=== PATIENT | male | born 1990 | race Caucasian/White ===

== ENCOUNTER → 2022-12-15 | Outpatient (CLI) | payer OTHER, SELFPAY ==
[2022-12-15 15:55] LABS: Absolute Lymphocyte Count 0.96 X10^3/uL (0.83-4.51); Absolute Neutrophil Count 3.7 X10^3/uL (2.0-7.7); Basophil# 0.02 X10^3/uL; Basophil% 0.4 % (0-1); Eosinophil# 0.02 X10^3/uL; Eosinophils% 0.4 % (0-5); Hematocrit 36.4 % (40-54); Lymphocyte # 0.96 X10^3/ul (0.83-4.51); Lymphocyte % 17.9 % (19-41); Mean Corpuscular Hgb 29.9 pg (27.0-32.0); Mean Corpuscular Volume 90.8 fL (80-94); Mean Platelet Vol. 8.3 fl (6.2-12.0); Monocyte# 0.62 X10^3/uL; Monocyte% 11.6 % (0-10); NRBC Flagged by Analyzer 0 % (0-5); Neutrophil # 3.73 X10^3/uL (2.7-7.7); Neutrophil % 69.5 % (47-70); Platelet Count 526 K/mm3 (150-450); RBC Distribution Width CV 15.1 % (11.6-14.6); RBC Distribution Width SD 50.8 fl (35.1-43.9); Red Blood Count 4.01 M/mm3 (4.6-6.2); White Blood Count 5.4 K/mm3 (4.4-11.0)
[2022-12-15 16:38] LABS: Erythrocyte Sedimentation Rate < 1 mm/hr (0-20)
[2022-12-15 16:58] LABS: ALB/GLOB Ratio 1.1 RATIO (0.9-2.4); AST(SGOT) 31 U/L (15-37); Alanine Aminotransfer ALT/SGPT 27 U/L (16-61); Albumin, Serum 4.1 g/dL (3.2-5.0); Alkaline Phosphatase 89 U/L (45-117); Anion Gap 7 (5-15); BUN 23 mg/dL (7-18); BUN/Creat Ratio 23.2 RATIO (10-20); CRP < 2.90 mg/L (0.0-3.0); Calcium,Total 9.6 mg/dL (8.5-10.1); Chloride 106 mmol/L (98-107); Creatinine, Serum 0.99 mg/dL (0.70-1.30); EST Glomerular Filtration Rate 94 mL/min (>60); Est Glom Filt Rate - Afr Amer 114 mL/min (>60); Globulin 3.6 g/dL (2.2-4.2); Glucose 112 mg/dL (74-106); LDH 210 U/L (87-241); Potassium 3.5 mmol/L (3.5-5.1); Protein, Total 7.7 g/dL (6.4-8.2); Sodium Level 140 mmol/L (136-145)
[2022-12-19 15:08] LABS: Anti-Centromere B Ab <0.2 AI (0.0-0.9); Anti-Chromatin <0.2 AI (0.0-0.9); Anti-Jo <0.2 AI (0.0-0.9); Anti-Mitochondrial AB <20.0 Units (0.0-20.0); Anti-Scleroderma-70 AB <0.2 AI (0.0-0.9); Anti-dsDNA Ab 1 IU/mL (0-9); Endomysial Antibody IgA Negative (Negative); Immunoglobulin A 310 mg/dL (90-386); RNP Ab 0.2 AI (0.0-0.9); SJOGREN'S Anti-SS-A test < 0.2 AI (0.0-0.9); SJOGREN'S Anti-SS-B test < 0.2 AI (0.0-0.9); Smith Ab <0.2 AI (0.0-0.9); t-Transglutaminase IgA <2 U/mL (0-3)
[2022-12-19 16:08] LABS: Albumin 4.4 g/dL (2.9-4.4); Alpha-1-Globulins 0.2 g/dL (0.0-0.4); Alpha-2-Globulins 0.6 g/dL (0.4-1.0); Anti-Smooth Muscle ABS 6 Units (0-19); Cytoplasmic Ab (C-ANCA) <1:20 titer (Neg:<1:20); Gamma Globulin 1.1 g/dL (0.4-1.8); Immunoglobulin A 310 mg/dL (90-386); Immunoglobulin E 12 IU/mL (6-495); Immunoglobulin G 1090 mg/dL (603-1613); Immunoglobulin M 77 mg/dL (20-172); PROEL- TOTAL PROTEIN 7.5 g/dL (6.0-8.5); Perinuclear Ab (P-ANCA) <1:20 titer (Neg:<1:20)
== END | disposition home or self-care (01) ==
PROVIDERS: PCP Family Medicine; Referring Provider Internal Medicine Gastroenterology; Visit Provider Internal Medicine Gastroenterology
DX: K51.90 Ulcerative colitis, unspecified, without complications (principal)
CPT/HCPCS: 36415; 80053; 82784; 82785; 83516; 83615; 84165; 85025; 85652; 86140; 86225; 86235; 86255; 86256; 86334

== ENCOUNTER → 2022-12-23 | Outpatient (CLI) | payer OTHER, SELFPAY ==
[2022-12-29 17:07] LABS: Pancreatic Elastase, Fecal 70 (>200)
[2023-01-04 00:06] LABS: Calprotectin, Stool 73 ug/g (0-120); Fats, Neutral Normal (.); Fats, Total Normal (.)
== END | disposition home or self-care (01) ==
LOC: LABSPEC 07:01
PROVIDERS: PCP Family Medicine; Visit Provider Internal Medicine Gastroenterology
DX: K58.9 Irritable bowel syndrome, unspecified (principal); K51.90 Ulcerative colitis, unspecified, without complications
CPT/HCPCS: 82274; 82653; 82705; 83630; 83993; 87177; 87209; 87329; 87493; 87506

== ENCOUNTER 2023-03-16 08:04 | Day surgery (SDC) | payer OTHER, SELFPAY ==
[2023-03-16] VITALS (7 sets, daily range): BP systolic 98–132; BP diastolic 51–84; PULSE 45–52; RESP 16; TEMP 36.2–36.7; O2SAT 100; BMI 22.4
--- NOTE | 2023-03-16 | GASB_PTH ---
PATIENT: KIRA ARMAS LOC: [facility] U#:[id number] AGE/SX: 32/M ROOM: RE03/16/[address]: Dr. Milad Johnson DO : 1990 BED: DIS: 03/16/2023 SPEC #: [id number] RECD: 03/16/23 12:19 STATUS: KAYA DONNELL #: [id number] OCTAVIO: 03/16/23 00:[address]: Milad Johnson DEPT: SURGICAL PATHOLOGY RECD BY: Cuba Alvarez ENTERED: 03/16/23 12:20 SP TYPE: Gastric Bx OTHR DR: Dr. Jarrod Hernandez MD Tissues: A - Duodenum, NOS B - Duodenum, NOS C - Gastric mucous membrane D - Esophageal mucous membrane E - COLON BIOPSY F - Ileum, NOS G - Ascending colon H - Transverse colon I - Descending colon J - Sigmoid colon biopsy K - Sigmoid colon biopsy L - Rectum, NOS Procedures: Special Stain Group II Surgery Specimen Level IV Alcian Blue/PAS (control) HEADER OPERATION: Colonoscopy with biopsies and polypectomy and marking, EGD PRE-OP DIAGNOSIS: Ulcerative colitis TISSUE SUBMITTED: A - Duodenal ulcer biopsy, B - Random duodenum biopsy, C - Gastric body biopsy, D - Distal esophagus biopsy, E - Appendiceal orifice biopsy, F - Terminal ileum biopsy, G??Ascending colon biopsy, H - Transverse colon biopsy, I - Descending colon biopsy, J - Sigmoid colon biopsy, K - Sigmoid polyp, L - Rectal biopsy MICROSCOPIC DIAGNOSIS A. Duodenal ulcer, biopsy: No pathologic change. B. Duodenum, random biopsy: Focal gastric metaplasia. C. Gastric body, biopsy: Minimal chronic inflammation. See comment. D. Distal esophagus, biopsy: Gastroesophageal junctional mucosa with mild chronic inflammation. 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 No evidence of dysplasia. See comment. E. Appendiceal orifice, biopsy: Focal acute colitis. F. Terminal ileum, biopsy: No pathologic change. G. Descending colon, biopsy: No pathologic change. H. Transverse colon, biopsy: No pathologic change. I. Descending colon, biopsy: Mild architectural change. No evidence of active colitis. J. Sigmoid colon, biopsy: Mild architectural change. No evidence of active colitis. K. Sigmoid colon polyp, biopsy: Colonic polyp with adenomatous change, ulceration and associated granulation. L. Rectum, biopsy: Mild architectural change. No evidence of active colitis. AM:wilson 03/17/2023 COMMENT C. The results of immunohistochemistry for Helicobacter pylori will be reported separately ([id number]). D. Alcian blue/PAS stain with matched control supports the above diagnosis. Immunohistochemistry ([id number]) for P53 and Ki-67 will be performed and results will be reported separately. MICROSCOPIC DESCRIPTION Slides are reviewed. GROSS DESCRIPTION A - Received in fixative is one container labeled with the patient's name and designated duodenal ulcer biopsy. The specimen consists of multiple irregular fragments of light chandler soft tissue that in aggregate measure 0.5 x 0.2 x 0.1 cm. The specimen is totally submitted in one cassette. B - Received in fixative is one container labeled with the patient's name and designated random duodenum biopsy. The specimen consists of multiple irregular fragments of light chandler soft tissue that in aggregate measure 0.7 x 0.5 x 0.1 cm. The specimen is totally submitted in one cassette. C - Received in fixative is one container labeled with the patient's name and designated gastric body. The specimen consists of multiple irregular fragments of light chandler soft tissue that in aggregate measure 0.8 x 0.6 x 0.1 cm. The specimen is totally submitted in one cassette. D - Received in fixative is one container labeled with the patient's name and designated distal esophagus biopsy. The specimen consists of multiple irregular fragments of light chandler soft tissue that in aggregate measure 0.8 x 0.7 x 0.1 cm. The specimen is totally submitted in one cassette. E - Received in fixative is one container labeled with the patient's name and designated appendiceal orifice biopsy. The specimen consists of one irregular fragment of light chandler soft tissue that measures 0.3 x 0.2 x 0.1 cm. The specimen is totally submitted in one cassette. F - Received in fixative is one container labeled with the patient's name and designated terminal ileum biopsy. The specimen consists of two irregular fragments of light chandler soft tissue that in aggregate measure 0.5 x 0.3 x 0.1 cm. The specimen is totally submitted in one cassette. G - Received in fixative is one container labeled with the patient's name and designated ascending colon. The specimen consists of multiple irregular fragments of light chandler soft tissue that in aggregate measure 1.0 x 0.6 x 0.1 cm. The specimen is totally submitted in one cassette. H - Received in fixative is one container labeled with the patient's name and designated transverse colon biopsy. The specimen consists of multiple irregular fragments of light chandler soft tissue that in aggregate measure 1.5 x 0.5 x 0.1 cm. The specimen is totally submitted in one cassette. I - Received in fixative is one container labeled with the patient's name and designated descending colon biopsy. The specimen consists of multiple irregular fragments of light chandler soft tissue that in aggregate measure 2.0 x 0.5 x 0.1 cm. The specimen is totally submitted in one cassette. J - Received in fixative is one container labeled with the patient's name and designated sigmoid colon biopsy. The specimen consists of multiple irregular fragments of light chandler soft tissue that in aggregate measure 1.5 x 0.6 x 0.1 cm. The specimen is totally submitted in one cassette. K - Received in fixative is one container labeled with the patient's name and designated sigmoid polyp. The specimen consists of one irregular fragment of light chandler soft tissue that measures 1.0 x 0.5 x 0.3 cm. The specimen is totally submitted in one cassette. L - Received in fixative is one container labeled with the patient's name and designated rectal biopsy. The specimen consists of multiple irregular fragments of light chandler soft tissue that in aggregate measure 0.8 x 0.8 x 0.1 cm. The specimen is totally submitted in one cassette. / AM:wilson 03/16/2023 TC:2 CPT: 86112 x12, 99316
--- NOTE | 2023-03-16 08:10 | PCM.HP.BLA ---
History and Physical Date of Admission: 03/16/23 KIRA ARMAS, is a 32 M who presents to the office today for GI [facility] established. Discharged with Xeljanz which was denied and started on Rinvoq with resolution of loose stools and rectal bleeding. Attempted budesonide and humira, both failed to achieve remission/improve symptoms; started on Remicade early 2019 which had positive effects but was lost to follow up and he stopped therapy. LV ? Colonoscopy 06.15.20 left colon and rectal biopsy inactive chronic colitis. [facility] ED 05.20.22 with abdominal pain and hematochezia for two weeks. Diagnosed as acute UC flare and discharged with oral steroids. ? CT 05.20.22 OSH colitis involving colon, most notable from splenic flexure to rectum, likely IBD. Hospitalization [facility] 05.27.22-05.31.22 with acute flare of UC as a direct admit from Dr. Gooden with abdominal pain. Discharged with Xeljanz. PCP OV 09.14.22 with previously diagnosed UC currently managed with Rinvoq. No active symptoms noted. *[facility] established 12.15.22 UC diagnosed approximately 10 years prior. Continues with Rinvoq. Symptoms include loose stools, intermittent fevers, intermittent abdominal pain. Reports last colonoscopy which he reports polypectomy but no active UC seen and was then seen in [facility] for flare management. Assessment and Plan Assessment and Plan (1) Ulcerative colitis: Status: Chronic Plan: Patient has a history of ulcerative colitis . We will stage him and grade the severity of his disease. After that time, we will be able to determine the natural history of his disease. We will check biochemical work up, stool test, imaging and colonoscopy. Orders: Orders Comprehensive Metabolic Profil Today K51.90 - Ulcerative colitis, unspecified, without complications CRP Today K51.90 - Ulcerative colitis, unspecified, without complications LDH Today K51.90 - Ulcerative colitis, unspecified, without complications CBC W/Diff, Automated Today K51.90 - Ulcerative colitis, unspecified, without complications Erythrocyte Sed Rate Today K51.90 - Ulcerative colitis, unspecified, without complications Anti-Mitochondrial AB Today K51.90 - Ulcerative colitis, unspecified, without complications LIZ Comprehensive Panel Today K51.90 - Ulcerative colitis, unspecified, without complications Calprotectin, Stool Today - Ulcerative colitis, unspecified, without complications Fecal Fat, Qualitative Today - Ulcerative colitis, unspecified, without complications OVA+PARA w/Giardia EIA [id number] Today - Ulcerative colitis, unspecified, without complications CDIFF (PCR) Today - Ulcerative colitis, unspecified, without complications ENTERIC PATHOGEN PANEL STOOL Today - Ulcerative colitis, unspecified, without complications, K58.9 - Irritable bowel syndrome without diarrhea Stool Occult Blood iFOB Today - Ulcerative colitis, unspecified, without complications Stool Lactoferrin/WBC Today - Ulcerative colitis, unspecified, without complications ANCA Today - Ulcerative colitis, unspecified, without complications Anti-Smooth Muscle ABS Today - Ulcerative colitis, unspecified, without complications Celiac Disease Profile Today - Ulcerative colitis, unspecified, without complications Immunoglobulins G/A/M/E Today - Ulcerative colitis, unspecified, without complications MARIANNA + Protein Elect, Serum Today - Ulcerative colitis, unspecified, without complications Pancreatic Elastase, Fecal Today - Ulcerative colitis, unspecified, without complications Miscellaneous Lab Procedure Today - Ulcerative colitis, unspecified, without complications I have examined the patient and the H&P has been reviewed. There are no clinical changes since date of exam.
[2023-03-16] MEDS: Lactated Ringers 1,000 ML 15 ML IV (09:09)
--- NOTE | 2023-03-16 09:15 | IMM_PTH ---
PATIENT: KIRA ARMAS LOC: [facility] U#:[id number] AGE/SX: 32/M ROOM: RE03/16/[address]: Dr. Milad Johnson DO : 1990 BED: DIS: 03/16/2023 SPEC #: [id number] RECD: 03/16/23 12:27 STATUS: KAYA REAvery #: [id number] OCTAVIO: 03/16/23 09:[address]: Milad Johnson DEPT: IMMUNOHISTOCHEMISTRY RECD BY: Kate Mattson ENTERED: 03/16/23 12:28 SP TYPE: IMMUNO OTHR DR: Dr. Jarrod Hernandez MD Tissues: B - Stomach, NOS D - Esophagus, NOS Procedures: H Pylori (initial) P53 (initial) KI-67 (add) MOC-31 (add) PHYSICIAN & INSTITUTION [place] [id number] SPECIMEN INFORMATION: Tissue Source: C - Gastric body, biopsy, D - Distal esophagus, biopsy Clinical Info: Ulcerative colitis Specimen Number: [id number] C & D CPT code: 04175 x2, 13353 x2 METHODOLOGY: Deparaffinized sections of prefer/formalin-fixed tissue or PAP/DQ stained slides are incubated with monoclonal/polyclonal antibodies/oligonucleotide probes. Localization is made via biotin free immunoperoxidase method. Appropriate controls are performed and reacted as expected. Results on target cell population are indicated in the following table: RESULTS: ANTIBODY / CLONE RESULT Block C H Pylori (polyclonal) negative Block D P53 (DO-7) negative, null pattern Ki-67 (30-9) positive, low MOC-31 (4561) positive These tests were developed and their performance characteristics determined by [facility]. They may not have been cleared or approved by the U.S. Food and Drug Administration. The FDA has determined that such clearance or approval is not necessary. The above immunohistochemical/dualISH markers are ordered and reviewed by the Pathologist. INTERPRETATION: C. Gastric body, biopsy: Negative for Helicobacter pylori organisms. D. Distal esophagus, biopsy: No evidence of dysplasia. AM:wilson 03/20/2023
--- NOTE | 2023-03-16 10:45 | OP.CCLET_ITS ---
03/16/2023 Jarrod Hernandez Re : Upper GI endoscopy procedure for Jose R Robertson Dear David This procedure was performed on February. My impressions and recommendations are as follows: Impressions : - LA Grade B reflux esophagitis with no bleeding. Biopsied. - Erythematous mucosa in the gastric body, antrum and stomach. Biopsied. - Non-bleeding duodenal ulcer with no stigmata of bleeding. Biopsied. - Erythematous duodenopathy. Biopsied. Recommendations : - Discharge patient to home. - Resume previous diet. - Continue present medications. - Await pathology results. - Repeat upper endoscopy for surveillance. My findings are described in the full procedure note, which is enclosed. If I can be of further assistance, please feel free to contact me at . Sincerely, Milad Johnson, 03/16/2023 10:45:23 AM This report has been signed electronically.
--- NOTE | 2023-03-16 10:45 | OP.EGD_ITS ---
Patient Name: Jose R Robertson Procedure Date: 03/16/2023 9:51 AM Date of : 1990 Age: 32 Procedure: Upper GI endoscopy Indications: Epigastric abdominal pain Providers: Milad Johnson DO Referring MD: Jarrod Hernandez Medicines: Monitored Anesthesia Care Patient Profile: This is a 32 year old male. Refer to note in patient chart for documentation of history and physical. Patient has symptoms of chronic epigastric abdominal pain and chronic heartburn. Complications: No immediate complications. Procedure: Pre-Anesthesia Assessment: - Prior to the procedure, a History and Physical was performed, and patient medications and allergies were reviewed. The risks and benefits of the procedure and the sedation options and risks were discussed with the patient. All questions were answered and informed consent was obtained. Patient identification and proposed procedure were verified by the physician in the pre-procedure area. Mental Status Examination: alert and oriented. Airway Examination: normal oropharyngeal airway and neck mobility. Respiratory Examination: clear to auscultation. CV Examination: normal. Prophylactic Antibiotics: The patient does not require prophylactic antibiotics. Prior Anticoagulants: The patient has taken no anticoagulant or antiplatelet agents. After reviewing the risks and benefits, the patient was deemed in satisfactory condition to undergo the procedure. The anesthesia plan was to use minimal sedation / analgesia (anxiolysis). Immediately prior to administration of medications, the patient was re-assessed for adequacy to receive sedatives. The heart rate, respiratory rate, oxygen saturations, blood pressure, adequacy of pulmonary ventilation, and response to care were monitored throughout the procedure. The physical status of the patient was re-assessed after the procedure. After obtaining informed consent, the endoscope was passed under direct vision. Throughout the procedure, the patient's blood pressure, pulse, and oxygen saturations were monitored continuously. The Colonoscope was introduced through the mouth, and advanced to the second part of duodenum. The upper GI endoscopy was accomplished without difficulty. The patient tolerated the procedure well. Scope In: 10:02:42 AM Scope Out: 10:11:10 AM Total Procedure Duration Time 0 hours 8 minutes 28 seconds Findings: LA Grade B (one or more mucosal breaks greater than 5 mm, not extending between the tops of two mucosal folds) esophagitis with no bleeding was found 35 to 37 cm from the incisors. Biopsies were taken with a cold forceps for histology. Verification of patient identification for the specimen was done. Estimated blood loss was minimal. Localized mildly erythematous mucosa without bleeding was found in the gastric body, in the gastric antrum and in the stomach. Biopsies were taken with a cold forceps for histology. Verification of patient identification for the specimen was done. Estimated blood loss was minimal. One non-bleeding superficial duodenal ulcer with no stigmata of bleeding was found in the first portion of the duodenum. The lesion was 5 mm in largest dimension. Biopsies were taken with a cold forceps for histology. Verification of patient identification for the specimen was done. Estimated blood loss was minimal. Patchy mildly erythematous mucosa without active bleeding and with no stigmata of bleeding was found in the duodenal bulb. Biopsies were taken with a cold forceps for histology. Verification of patient identification for the specimen was done. Estimated blood loss was minimal. Impression: - LA Grade B reflux esophagitis with no bleeding. Biopsied. - Erythematous mucosa in the gastric body, antrum and stomach. Biopsied. - Non-bleeding duodenal ulcer with no stigmata of bleeding. Biopsied. - Erythematous duodenopathy. Biopsied. Recommendation: - Discharge patient to home. - Resume previous diet. - Continue present medications. - Await pathology results. - Repeat upper endoscopy for surveillance. Procedure Code(s): --- Professional --- 41347, Esophagogastroduodenoscopy, flexible, transoral; with biopsy, single or multiple CPT copyright 2021 [employer]. All rights reserved. The codes documented in this report are preliminary and upon soaking room operator review may be revised to meet current compliance requirements. Milad Johnson DO 03/16/2023 10:45:23 AM This report has been signed electronically. Number of Addenda: 0 Note Initiated On: 03/16/2023 9:51 AM
--- NOTE | 2023-03-16 10:54 | OP.COLON_ITS ---
Patient Name: Jose R Robertson Procedure Date: 03/16/2023 10:11 AM Date of : 1990 Age: 32 Procedure: Colonoscopy Indications: Left-sided chronic ulcerative colitis Providers: Milad Johnson DO Referring MD: Jarrod Hernandez Medicines: Monitored Anesthesia Care Patient Profile: This is a 32 year old male. Refer to note in patient chart for documentation of history and physical. Patient has symptoms of chronic epigastric abdominal pain and chronic heartburn. Last Colonoscopy: date unknown. Unable to locate last colonoscopy report. Complications: No immediate complications. Procedure: Pre-Anesthesia Assessment: - Prior to the procedure, a History and Physical was performed, and patient medications and allergies were reviewed. The risks and benefits of the procedure and the sedation options and risks were discussed with the patient. All questions were answered and informed consent was obtained. Patient identification and proposed procedure were verified by the physician in the pre-procedure area. Mental Status Examination: alert and oriented. Airway Examination: normal oropharyngeal airway and neck mobility. Respiratory Examination: clear to auscultation. CV Examination: normal. Prophylactic Antibiotics: The patient does not require prophylactic antibiotics. Prior Anticoagulants: The patient has taken no anticoagulant or antiplatelet agents. After reviewing the risks and benefits, the patient was deemed in satisfactory condition to undergo the procedure. The anesthesia plan was to use minimal sedation / analgesia (anxiolysis). Immediately prior to administration of medications, the patient was re-assessed for adequacy to receive sedatives. The heart rate, respiratory rate, oxygen saturations, blood pressure, adequacy of pulmonary ventilation, and response to care were monitored throughout the procedure. The physical status of the patient was re-assessed after the procedure. After I obtained informed consent, the scope was passed under direct vision. Throughout the procedure, the patient's blood pressure, pulse, and oxygen saturations were monitored continuously. The Colonoscope was introduced through the anus and advanced to the terminal ileum. The colonoscopy was performed without difficulty. The patient tolerated the procedure well. The quality of the bowel preparation was good. The terminal ileum, ileocecal valve, appendiceal orifice, and rectum were photographed. Scope In: 10:13:26 AM Scope Withdrawal Time 0 hours 16 minutes 20 seconds Scope Out: 10:32:36 AM Total Procedure Duration Time 0 hours 19 minutes 10 seconds Findings: The perianal and digital rectal examinations were normal. A 9 mm polyp was found in the sigmoid colon. The polyp was sessile. The polyp was removed with a hot snare. Resection and retrieval were complete. Area was successfully injected with 2 mL Mamie ink for tattooing. Estimated blood loss was minimal. Inflammation was found in a continuous and circumferential pattern from the rectum to the splenic flexure. This was graded as Stephens Score 2 (moderate, with marked erythema, absent vascular pattern, friability, erosions). Biopsies were taken with a cold forceps for histology. Verification of patient identification for the specimen was done. Estimated blood loss was minimal. Patchy mild inflammation was found in the terminal ileum. Biopsies were taken with a cold forceps for histology. Verification of patient identification for the specimen was done. Estimated blood loss was minimal. Impression: - One 9 mm polyp in the sigmoid colon, removed with a hot snare. Resected and retrieved. Injected. - Moderately active (Stephens Score 2) ulcerative colitis. Biopsied. - Mild inflammation was found in the ileum secondary to ileitis. Biopsied. Recommendation: - Discharge patient to home. - Resume previous diet. - Continue present medications. - Await pathology results. - Repeat colonoscopy in 1 year for surveillance. Procedure Code(s): --- Professional --- 31433, Colonoscopy, flexible; with removal of tumor(s), polyp(s), or other lesion(s) by snare technique 86060, 59, Colonoscopy, flexible; with biopsy, single or multiple 32936, Colonoscopy, flexible; with directed submucosal injection(s), any substance CPT copyright 2021 [employer]. All rights reserved. The codes documented in this report are preliminary and upon court reporter review may be revised to meet current compliance requirements. Milad Johnson DO 03/16/2023 10:54:15 AM This report has been signed electronically. Number of Addenda: 0 Note Initiated On: 03/16/2023 10:11 AM
--- NOTE | 2023-03-16 10:55 | OP.CCLET_ITS ---
03/16/2023 Jarrod Hernandez Re : Colonoscopy procedure for Jose R Robertson Dear David This procedure was performed on February. My impressions and recommendations are as follows: Impressions : - One 9 mm polyp in the sigmoid colon, removed with a hot snare. Resected and retrieved. Injected. - Moderately active (Stephens Score 2) ulcerative colitis. Biopsied. - Mild inflammation was found in the ileum secondary to ileitis. Biopsied. Recommendations : - Discharge patient to home. - Resume previous diet. - Continue present medications. - Await pathology results. - Repeat colonoscopy in 1 year for surveillance. My findings are described in the full procedure note, which is enclosed. If I can be of further assistance, please feel free to contact me at . Sincerely, Milad Johnson, 03/16/2023 10:54:15 AM This report has been signed electronically.
== END 2023-03-16 11:28 | disposition home or self-care (01) ==
LOC: EN 08:05 → AC 08:07
PROVIDERS: PCP Family Medicine; Referring Provider Family Medicine; Visit Provider Internal Medicine Gastroenterology
PROC: 0DJD8ZZ Inspection of Lower Intestinal Tract, Via Natural or Artificial Opening Endoscopic (ICD-10-PCS; CPT 45378; principal; 2023-03-16 09:10)
DX: K51.90 Ulcerative colitis, unspecified, without complications (principal); K26.9 Duodenal ulcer, unspecified as acute or chronic, without hemorrhage or perforation; K21.00 Gastro-esophageal reflux disease with esophagitis, without bleeding; K63.5 Polyp of colon
CPT/HCPCS: 45380; 45381; 45385; 43239; 81002; 88305; 88313; 88341; 88342; J7120; A4648; J2405

== ENCOUNTER → 2024-02-07 | Outpatient (CLI) | payer OTHER, SELFPAY ==
[2024-02-07 08:31] LABS: Absolute Lymphocyte Count 0.31 X10^3/uL (0.83-4.51); Absolute Neutrophil Count 5.2 X10^3/uL (2.0-7.7); Basophil# 0.02 X10^3/uL; Basophil% 0.3 % (0-1); Hemoglobin 14.5 g/dL (13.0-16.5); Lymphocyte # 0.31 X10^3/ul (0.83-4.51); Lymphocyte % 4.9 % (19-41); Mean Corp Hgb Conc 35.4 g/dL (32-36); Mean Platelet Vol. 8.4 fl (6.2-12.0); Monocyte# 0.72 X10^3/uL; Monocyte% 11.5 % (0-10); NRBC Flagged by Analyzer 0 % (0-5); Neutrophil % 82.8 % (47-70); POSITIVE DIFFERENTIAL YES; Platelet Count 481 K/mm3 (150-450); RBC Distribution Width CV 11.6 % (11.6-14.6); RBC Distribution Width SD 40.6 fl (35.1-43.9); Red Blood Count 4.27 M/mm3 (4.6-6.2); White Blood Count 6.3 K/mm3 (4.4-11.0)
[2024-02-07 08:33] LABS: Erythrocyte Sedimentation Rate < 1 mm/hr (0-20)
[2024-02-07 09:05] LABS: ALB/GLOB Ratio 1.1 RATIO (0.9-2.4); AST(SGOT) 23 U/L (15-37); Alanine Aminotransfer ALT/SGPT 35 U/L (16-61); Albumin, Serum 4.1 g/dL (3.2-5.0); Alkaline Phosphatase 77 U/L (45-117); Anion Gap 6 (5-15); BUN 18 mg/dL (7-18); BUN/Creat Ratio 17.5 RATIO (10-20); Chloride 103 mmol/L (98-107); Creatinine, Serum 1.03 mg/dL (0.70-1.30); EST Glomerular Filtration Rate 89 mL/min (>60); Est Glom Filt Rate - Afr Amer 108 mL/min (>60); Globulin 3.8 g/dL (2.2-4.2); Glucose 151 mg/dL (74-106); Potassium 3.9 mmol/L (3.5-5.1); Protein, Total 7.9 g/dL (6.4-8.2); Sodium Level 136 mmol/L (136-145)
== END | disposition home or self-care (01) ==
LOC: LAB 06:55
PROVIDERS: Referring Provider Internal Medicine Gastroenterology; Visit Provider Internal Medicine Gastroenterology
DX: K51.90 Ulcerative colitis, unspecified, without complications (principal)
CPT/HCPCS: 36415; 80053; 85025; 85652; 86140

== ENCOUNTER → 2024-03-12 | Outpatient (CLI) | payer OTHER, SELFPAY ==
[2024-03-15 13:42] LABS: Calprotectin, Stool 187 ug/g (0-120)
== END | disposition home or self-care (01) ==
PROVIDERS: Referring Provider Internal Medicine Gastroenterology; Visit Provider Internal Medicine Gastroenterology
DX: K58.0 Irritable bowel syndrome with diarrhea (principal); R19.7 Diarrhea, unspecified
CPT/HCPCS: 83630; 83993; 87177; 87209; 87493; 87506

== ENCOUNTER 2024-03-25 05:19 | Day surgery (SDC) | payer OTHER, SELFPAY ==
[2024-03-25] VITALS (9 sets, daily range): BP systolic 123–177; BP diastolic 82–109; PULSE 42–53; RESP 14–17; TEMP 36.5–36.6; O2SAT 100; BMI 22.4
[2024-03-25] MEDS: Lactated Ringers 1,000 ML 15 ML IV (05:57)
--- NOTE | 2024-03-25 06:25 | PRE.ANES_ITS ---
ASA Classification* ASA Classification ASA Classification: 2 Assessment & Plan Anesthesia* Anesthesia Assessment Anesthesia Assessment: Discussed sedation and/or anesthesia options, risks, benefits, and alternatives with patient/parents/legal guardian/POA. Questions invited. The patient/parents/legal guardian/POA seems to understand and agrees to proceed with anesthesia plan. Reviewed the physical assessment, medical history, allergy history and patient home medications list prior to surgery/procedure/anesthetic and documented any changes. Performed airway and anesthesia risk assessments. Anesthesia Type Anesthesia Type: MAC Anesthesia Focused Assessment* Temperature: 98 F Pulse Rate: 53 Blood Pressure: 153/105 Respiratory Rate: 16 Pulse Ox: 100 Airway Assessment Mouth opens: >3 cm Mallampati Score: II Focused Labs Anesthesia Preop lab: CBC WBC 6.3 K/mm3 (4.4-11.0) 02/07/24 07:04 RBC 4.27 M/mm3 (4.6-6.2) L 02/07/24 07:04 Hgb 14.5 g/dL (13.0-16.5) 02/07/24 07:04 Hct 41.0 % (40-54) 02/07/24 07:04 Plt Count 481 K/mm3 (150-450) H 02/07/24 07:04 CHEMISTRY Potassium 3.9 mmol/L (3.5-5.1) 02/07/24 07:04 Sodium 136 mmol/L (136-145) 02/07/24 07:04 BUN 18 mg/dL (7-18) 02/07/24 07:04 Creatinine 1.03 mg/dL (0.70-1.30) 02/07/24 07:04 Glucose 151 mg/dL (74-106) H 02/07/24 07:04 COAG Pre-Assessment Diagnosis/Proposed Procedure Planned Operative Procedure(s): COLONOSCOPY Anesthesia History Anesthesia History - detail technician: Anesthesia History - detail technician Hx Hospitalization Yes: 05/2022 ULCERATIVE 03/20/24 10:45 COLITIS Any Problems With Anesthesia No 03/20/24 10:45 Cholinesterase deficiency No 03/20/24 10:45 You/Your Family Experience No 03/20/24 10:45 fever (hyperthermia) with Relationship Recent Exposure to Contagious No 03/25/24 05:51 Disease Does patient have nerve No 03/20/24 10:45 stimulator Patient instructed to have device shut off --Does patient have Pacemaker No 03/25/24 05:51 or ICD? When Was Last Pacemaker Check QUESTION #4 FULL TEXT: You/Your Family Experience fever (hyperthermia) with Anesthesia Last Oral Intake Last Oral intake: Last Oral Intake NPO since 02:30 03/25/24 05:51 Meds taken in AM with sips of No 03/25/24 05:51 water? Meds patient instructed to take am of surgery PONV PONV - detail technician: PONV - detail technician Female No 03/20/24 10:45 HX of Motion Sickness No 03/20/24 10:45 HX of N/V After Surgery No 03/20/24 10:45 Non-Smoker Yes 03/20/24 10:45 Duration of Surgery greater No 03/20/24 10:45 than 60 minutes Number of Risk Factors 1 03/20/24 10:45 PONV Score Low Risk 03/20/24 10:45 Height & Weight Height & Weight: Anesthesia: Height & Weight Height 5 ft 8 in 03/25/24 05:51 Weight: 67 kg 03/25/24 05:51 Body Mass Index (BMI) 22.4 03/25/24 05:51 Respiratory Assessment Respiratory Assessment - detail technician: Respiratory Tract Infection Hx - detail technician Hx Respiratory Tract Infection No 03/20/24 10:45 STOP Sleep Apnea STOP Sleep Apnea - detail technician: STOP Sleep Apnea - detail technician Hx Hypertension No 03/20/24 10:45 Hx Sleep Apnea No 03/20/24 10:45 CPAP BIPAP Do you snore loudly (louder No 03/20/24 10:45 than talking or can be heard Do you often feel tired/ No 03/20/24 10:45 fatigued/ sleepy during daytime? Has anyone observed you stop No 03/20/24 10:45 breathing during sleep? STOP Results Negative 03/20/24 10:45 QUESTION #5 FULL TEXT : Do you snore loudly (louder than talking or can be heard through closed doors)? Tobacco Use History Tobacco Use History - detail technician: Tobacco Use History - detail technician Tobacco Use Smoking Status Never smoker 03/20/24 10:45 Hx Tobacco Use No 03/20/24 10:45 Years Smoking Packs Smoked per Day Smoking Cessation Date was within the last 15 years Hx Smoking Cessation Date Hx Smoking Cessation Counseling Hematologic Medial History Hematologic Hx - detail technician: Hematologic Medical Hx - clinical associate Hx of Blood Transfusion No 03/20/24 10:45 Hx of Transfusion in last 3 No 03/20/24 10:45 Months Date of Last Transfusion (if within last 3 months) Ever experience any problems No 03/20/24 10:45 with transfusion(s)? Specify any problems Hx of Preganancy in last 3 N/A 03/20/24 10:45 Months Nurse Filling Out Transfusion VCHRISTIN 03/20/24 10:45 & Questions: Date: 03/20/24 03/20/24 10:45 Time: 10:46 03/20/24 10:45 Patient unable to answer at this time (ie. confused, unrespo /Reproduction History /Reproductive History - detail technician: /Reproductive Hx- detail technician Hx Now Gestational Age (in weeks): EDC: Hx Hx Para Hx Section SAB Active Medications Active Medications: Current Medications Generic Name Dose Route Start Last Admin Trade Name Freq PRN Reason Stop Dose Admin Lactated Ringer's 1,000 mls @ 15 mls/hr 03/25/24 06:00 03/25/24 05:57 IV 15 mls/hr .Q48H RUI Administration PFSH Medical History Alcohol use Ulcerative colitis Non-smoker Cellulitis of right finger Home Medications ?Medication ?Instructions ?Recorded ?Last Taken ?Type multivitamin 1 tab PO DAILY 03/09/23 Unknown History pantoprazole 20 mg tablet,delayed 20 mg PO DAILY 3 months #90 tabs 11/14/23 Unknown Rx release dicyclomine 20 mg tablet 20 mg PO TID #90 tabs 03/07/24 Unknown Rx prednisone 20 mg tablet 40 mg (2 x 20 mg) PO DAILY #60 tabs 03/07/24 Unknown Rx upadacitinib 30 mg tablet,extended 30 mg PO DAILY #90 tabs 03/11/24 Unknown Rx release 24 hr (Rinvoq) Allergy/AdvReac Type Severity Reaction Status Date / Time Penicillins Allergy Intermediate Other Verified 03/25/24 05:48 Surgical History Hx of colonoscopy Social History Smoking Status: Never smoker Review of Systems (Anesthesia) ROS Narrative System reviewed and no additional complaints, except as documented.
--- NOTE | 2024-03-25 06:30 | COLBX_PTH ---
PATIENT: KIRA ARMAS LOC: [facility] U#:[id number] AGE/SX: 33/M ROOM: RE03/25/[address]: Dr. Milad Johnson DO : 1990 BED: DIS: 03/25/2024 SPEC #: [id number] RECD: 03/25/24 13:12 STATUS: KAYA DONNELL #: [id number] OCTAVIO: 03/25/24 06:[address]: Milad Johnson DEPT: SURGICAL PATHOLOGY RECD BY: Renae Delgado ENTERED: 03/25/24 13:49 SP TYPE: COLON BX OTHR DR: No Primary Care Phys Tissues: A - Cecum, NOS B - Ascending colon C - Transverse colon D - Descending colon E - Sigmoid colon biopsy F - Sigmoid colon biopsy G - Sigmoid colon biopsy H - Rectum, NOS Procedures: Surgery Specimen Level IV HEADER OPERATION: Colonoscopy with biopsy PRE-OP DIAGNOSIS: Ulcerative colitis TISSUE SUBMITTED: A- Cecum biopsy, B- Ascending colon biopsy, C- Transverse colon biopsy,D- Descending colon biopsy, E- Tattooed area sigmoid colon biopsy, F- Regular sigmoid colon biopsy,G- Sigmoid pseudopolyp biopsy, H- Rectum biopsy MICROSCOPIC DIAGNOSIS A. Cecum, biopsy: Moderate chronic active colitis. See comment. B. Ascending colon, biopsy: Fragments of colonic mucosa, no pathologic diagnosis. C. Transverse colon, biopsy: Fragments of colonic mucosa, no pathologic diagnosis. D. Descending colon, biopsy: Fragments of colonic mucosa, negative for active colitis. Focal minimal glandular distortion. E. Tattooed area sigmoid colon, biopsy: Fragments of colonic mucosa, negative for active colitis Focal mild glandular distortion. Extraneous black pigment. F. Regular sigmoid colon, biopsy: Fragments of colonic mucosa, negative for active colitis. Focal mild glandular distortion. G. Sigmoid pseuopolyp, biopsy: Fragments of colonic mucosa, negative for active colitis. Focal mild glandular distortion. H. Rectum, biopsy: Fragments of colonic mucosa, negative for active colitis. Focal mild glandular distortion. SJ. 03/26/2024 COMMENT A. Cryptitis, crypt abscesses and minimal glandular distortion are noted. Granulomas are not seen. No evidence of dysplasia. Correlation with clinical, endoscopic findings and appropriate follow up are necessary. MICROSCOPIC DESCRIPTION Slides are reviewed. GROSS DESCRIPTION A. Received in fixative is one container labeled with the patient's name and designated Cecal biopsy. The specimen consists of two irregular fragments of light chandler soft tissue that in aggregate measure 1.0 x 0.5 x 0.1 cm. The specimen is totally submitted in one cassette. B. Received in fixative is one container labeled with the patient's name and designated Ascending colon biopsy. The specimen consists of two irregular fragments of light chandler soft tissue that in aggregate measure 1.0 x 0.5 x0 .1 cm. The specimen is totally submitted in one cassette. C. Received in fixative is one container labeled with the patient's name and designated Transverse colon biopsy. The specimen consists of two irregular fragments of light chandler soft tissue that in aggregate measure 1.0 x 0.3 x 0.1 cm. The specimen is totally submitted in one cassette. D. Received in fixative is one container labeled with the patient's name and designated Descending colon biopsy. The specimen consists of multiple irregular fragments of light chandler soft tissue that in aggregate measure 1.0 x 0.3 x 0.1 cm. The specimen is totally submitted in one cassette. E. Received in fixative is one container labeled with the patient's name and designated Tattoo area of sigmoid colon. The specimen consists of multiple irregular fragments of light chandler soft tissue that in aggregate measure 1.0 x 0.3 x 0.1 cm. The specimen is totally submitted in one cassette. F. Received in fixative is one container labeled with the patient's name and designated Regular sigmoid colon biopsy. The specimen consists of one irregular fragment of light chandler soft tissue that measures 0.6 x 0.2 x 0.1 cm. The specimen is totally submitted in one cassette. G. Received in fixative is one container labeled with the patient's name and designated Sigmoid pseuopolyp biopsy. The specimen consists of multiple irregular fragments of light chandler soft tissue that in aggregate measure 0.6 x 0.5 x 0.1 cm. The specimen is totally submitted in one cassette. H. Received in fixative is one container labeled with the patient's name and designated Rectum biopsy. The specimen consists of two irregular fragments of light chandler soft tissue that measure in aggregate 0.5 x 0.5 x 0.1 cm. The specimen is totally submitted in one cassette. 03/25/2024 TC:2 CPT:52917f8
--- NOTE | 2024-03-25 06:40 | HP.PCM_ITS ---
History and Physical Date of Admission: 03/25/24 Details: KIRA ARMAS, is a 33 M who presents to the office today for a follow up visi t. [facility] established. Discharged with Xeljanz which was denied and started on Rinvoq with resolution of loose stools and rectal bleeding. Attempted budesonide and humira, both failed to achieve remission/improve symptoms; started on Remicade early 2019 which had positive effects but was lost to follow up and he stopped therapy. LV ? Colonoscopy 06.15.20 left colon and rectal biopsy inactive chronic colitis. [facility] [place] ED 05.20.22 with abdominal pain and hematochezia for two weeks. Diagnosed as acute UC flare and discharged with oral steroids. ? CT 05.20.22 OSH colitis involving colon, most notable from splenic flexure to rectum, likely IBD. Hospitalization [facility] 05.27.22-05.31.22 with acute flare of UC as a direct admit from Dr. Gooden with abdominal pain. Discharged with Xeljanz. PCP [facility] 09.14.22 with previously diagnosed UC currently managed with Rinvoq. No active symptoms noted. *[facility] established 12.15.22 UC diagnosed approximately 10 years prior. Continues with Rinvoq. Symptoms include loose stools, intermittent fevers, intermittent abdominal pain. Reports last colonoscopy which he reports polypectomy but no active UC seen and was then seen in [facility] for flare management. ROS Const Constitutional: No anorexia, fatigue, fever(s), weight change or sleep problems Eyes Eyes: No change in vision ENT ENT: No abnormal hearing, difficulty swallowing, mouth lesions, tongue swelling or throat swelling Resp Respiratory: No cough or shortness of breath Cardio Cardiology: No chest pain at rest, chest pain with exertion, shortness of breath or dyspnea on exertion Gastro GI: No difficulty swallowing Genitourinary Male: No difficulty urinating or burning urination Musc Musculoskeletal: No joint pain, joint swelling, muscle weakness or decreased muscle mass Skin Skin: No hair loss in leg, yellowing of the eye, itchy eyes, rash, skin ulcer or skin swelling Neuro Neurology: No abnormal hearing, abnormal movements, confusion, unsteady gait/balance or memory loss Psych Psychiatric: No anxiety, No confusion and No memory loss Endo Endocrine: No fatigue or weight change Aller/Imm Allergy/Immunologic: No itchy eyes, throat swelling or tongue swelling Tanner/Lymp Hematologic/Lymphatic: No easy bleeding, easy bruising or enlarged lymph nodes Exam Const General: cooperative and comfortable Nutritional Appearance: average body habitus and well nourished [facility] Head: normal to inspection Ears: hearing grossly normal bilaterally Nose: external nose normal Face and sinus: normal facial exam Mouth: oral mucosae normal Throat: posterior oropharynx normal Eyes General: appearance normal, both eyes and all related structures Neck Neck: normal visual inspection Chest Chest palpation & inspection: normal inspection of the chest and normal palpation of entire chest wall Resp Effort & Inspection: normal respiratory effort Auscultation: Bilateral: Clear to Auscultation Cardio Palpation: normal PMI Rate: regular rate Rhythm: regular rhythm GI Inspection: normal to inspection Auscultation: normal bowel sounds Percussion: normal to percussion Palpation: no hepatosplenomegaly Skin General: no rashes or lesions noted Neuro General: patient alert Extrem General: normal to inspection Psych Affect: normal affect Quality Reporting Tobacco Screening ([facility] 138) Smoking Status: Never smoker Assessment and Plan Assessment and Plan (1) Ulcerative colitis: Status: Chronic Plan: Patient has a history of ulcerative colitis. He underwent colonoscopy all into the cecum and into the terminal ileum. Findings: The perianal and digital rectal examinations were normal. A 9 mm polyp was found in the sigmoid colon. The polyp was sessile. The polyp was removed with a hot snare. Resection and retrieval were complete. Area was successfully injected with 2 mL Mamie ink for tattooing. Estimated blood loss was minimal. Inflammation was found in a continuous and circumferential pattern from the rectum to the splenic flexure. This was graded as Stephens Score 2 (moderate, with marked erythema, absent vascular pattern, friability, erosions). Biopsies were taken with a cold forceps for histology. Verification of patient identification for the specimen was done. Estimated blood loss was minimal. Patchy mild inflammation was found in the terminal ileum. Biopsies were taken with a cold forceps for histology. Verification of patient identification for the specimen was done. Estimated blood loss was minimal. Impression: - One 9 mm polyp in the sigmoid colon, removed with a hot snare. Resected and retrieved. Injected. - Moderately active (Stephens Score 2) ulcerative colitis. Biopsied. - Mild inflammation was found in the ileum secondary to ileitis. Biopsied. Recommendation: - Discharge patient to home. - Resume previous diet. - Continue present medications. - Await pathology results. - Repeat colonoscopy in 2 year for surveillance. He is actually doing very good on Rinvoq therapy. We will see him in approximately 6 to 8 months but we will check his fecal calprotectin, ESR, CRP unless he has any other breakthrough symptoms. (2) GERD (gastroesophageal reflux disease): Status: Acute Plan: He underwent an initial upper endoscopy and was discovered to have erosive esophagitis and short segment Kowalski's esophagus. Findings: LA Grade B (one or more mucosal breaks greater than 5 mm, not extending between the tops of two mucosal folds) esophagitis with no bleeding was found 35 to 37 cm from the incisors. Biopsies were taken with a cold forceps for histology. Verification of patient identification for the specimen was done. Estimated blood loss was minimal. Localized mildly erythematous mucosa without bleeding was found in the gastric body, in the gastric antrum and in the stomach. Biopsies were taken with a cold forceps for histology. Verification of patient identification for the specimen was done. Estimated blood loss was minimal. One non-bleeding superficial duodenal ulcer with no stigmata of bleeding was found in the first portion of the duodenum. The lesion was 5 mm in largest dimension. Biopsies were taken with a cold forceps for histology. Verification of patient identification for the specimen was done. Estimated blood loss was minimal. Patchy mildly erythematous mucosa without active bleeding and with no stigmata of bleeding was found in the duodenal bulb. Biopsies were taken with a cold forceps for histology. Verification of patient identification for the specimen was done. Estimated blood loss was minimal. Impression: - LA Grade B reflux esophagitis with no bleeding. Biopsied. - Erythematous mucosa in the gastric body, antrum and stomach. Biopsied. - Non-bleeding duodenal ulcer with no stigmata of bleeding. Biopsied. - Erythematous duodenopathy. Biopsied. Recommendation: - Discharge patient to home. - Resume previous diet. - Continue present medications. - Await pathology results. - Repeat upper endoscopy for surveillance. - Pantoprazole 20 mg a day Medications: New pantoprazole 20 mg PO DAILY 3 months 90 tabs 4RF Assessment and plan: He will undergo surveillance colonoscopy because he has been having breakthrough symptoms being diarrhea, lower GI bleeding, abdominal pain. His inflammatory markers including CRP ESR and fecal calprotectin have all been elevated. There was no sign of infection on his stool cultures. So he will likely need to be transitioned to a an IV or injectable biologic rather than his current medical therapy. I have examined the patient and the H&P has been reviewed. There are no clinical changes since date of exam.
--- NOTE | 2024-03-25 07:14 | OP.COLON_ITS ---
Patient Name: Jose R Robertson Procedure Date: 03/25/2024 6:27 AM Date of : 1990 Age: 33 Procedure: Colonoscopy Indications: Suspected chronic ulcerative pancolitis Providers: Milad Johnson DO Medicines: Monitored Anesthesia Care Patient Profile: This is a 33 year old male. Refer to note in patient chart for documentation of history and physical. Last Colonoscopy: within the past 3 years. Complications: No immediate complications. Procedure: Pre-Anesthesia Assessment: - Prior to the procedure, a History and Physical was performed, and patient medications and allergies were reviewed. The patient is competent. The risks and benefits of the procedure and the sedation options and risks were discussed with the patient. All questions were answered and informed consent was obtained. Patient identification and proposed procedure were verified by the nurse in the pre-procedure area. Mental Status Examination: alert and oriented. Airway Examination: normal oropharyngeal airway and neck mobility. Respiratory Examination: clear to auscultation. CV Examination: normal. Prophylactic Antibiotics: The patient does not require prophylactic antibiotics. Prior Anticoagulants: The patient has taken no anticoagulant or antiplatelet agents. ASA Grade Assessment: II - A patient with mild systemic disease. After reviewing the risks and benefits, the patient was deemed in satisfactory condition to undergo the procedure. The anesthesia plan was to use monitored anesthesia care (MAC). Immediately prior to administration of medications, the patient was re-assessed for adequacy to receive sedatives. The heart rate, respiratory rate, oxygen saturations, blood pressure, adequacy of pulmonary ventilation, and response to care were monitored throughout the procedure. The physical status of the patient was re-assessed after the procedure. After I obtained informed consent, the scope was passed under direct vision. Throughout the procedure, the patient's blood pressure, pulse, and oxygen saturations were monitored continuously. The Colonoscope was introduced through the anus and advanced to the cecum, identified by appendiceal orifice and ileocecal valve. The colonoscopy was performed without difficulty. The patient tolerated the procedure well. The quality of the bowel preparation was adequate. The ileocecal valve, appendiceal orifice, and rectum were photographed. Scope In: 6:52:32 AM Scope Withdrawal Time 0 hours 9 minutes 35 seconds Scope Out: 7:05:25 AM Total Procedure Duration Time 0 hours 12 minutes 53 seconds Findings: The perianal and digital rectal examinations were normal. Inflammation was found in a continuous and circumferential pattern from the anus to the transverse colon. This was graded as Stephens Score 2 (moderate, with marked erythema, absent vascular pattern, friability, erosions), and when compared to the previous examination, the findings are worsened. Biopsies were taken with a cold forceps for histology. Verification of patient identification for the specimen was done. Estimated blood loss was minimal. A tattoo was seen in the sigmoid colon. The tattoo site appeared normal. Biopsies were taken with a cold forceps for histology. Verification of patient identification for the specimen was done. Estimated blood loss was minimal. Impression: - Moderately active (Stephens Score 2) left-sided ulcerative colitis, worsened since the last examination. Biopsied. - A tattoo was seen in the sigmoid colon. The tattoo site appeared normal. Biopsied. Recommendation: - Discharge patient to home. - Resume previous diet. - Continue present medications. - Await pathology results. - Repeat colonoscopy for surveillance. - Return to GI office. Procedure Code(s): --- Professional --- 46913, Colonoscopy, flexible; with biopsy, single or multiple CPT copyright 2021 [employer]. All rights reserved. The codes documented in this report are preliminary and upon invoice coder review may be revised to meet current compliance requirements. Milad Johnson DO 03/25/2024 7:13:45 AM This report has been signed electronically. Number of Addenda: 0 Note Initiated On: 03/25/2024 6:27 AM
--- NOTE | 2024-03-25 07:15 | OP.CCLET_ITS ---
03/25/2024 No Primary Care Physician Re : [facility] This procedure was performed on Monday, March 25, 2024. My impressions and recommendations are as follows: Impressions : - Moderately active (Stephens Score 2) left-sided ulcerative colitis, worsened since the last examination. Biopsied. - A tattoo was seen in the sigmoid colon. The tattoo site appeared normal. Biopsied. Recommendations : - Discharge patient to home. - Resume previous diet. - Continue present medications. - Await pathology results. - Repeat colonoscopy for surveillance. - Return to GI office. My findings are described in the full procedure note, which is enclosed. If I can be of further assistance, please feel free to contact me at . Sincerely, Milad Johnson, 03/25/2024 7:13:45 AM This report has been signed electronically.
--- NOTE | 2024-03-25 07:25 | PCM.POST.ANE ---
Anesthesia: Postop Eval I Current Vital Signs Temperature: 97.7 F Pulse Rate: 44 Blood Pressure: 123/85 Respiratory Rate: 17 Pulse Ox: 100 Assessment Airway patent: Yes Spontaneous unlabored respirations: Yes nausea: No Vomiting: No Anesthesia Complication: No Fluid Hydration Crystalloid volume administer (ml): 300 Total IV fluid infused: 300 Progress Note Anesthesia document: Postop Eval 1 completed: Yes
--- NOTE | 2024-03-25 07:26 | POSTOPAN2_ITS ---
Anesthesia Postop Eval I Sum Postop Eval Completion status Anesthesia document: Postop Eval 1 completed: Yes Anesthesia Postop Eval I Summary Anesthesia Postop Eval I Summary: Anesthesia Postop Eval I: Assessment Summary Airway patent Yes 03/25/24 07:25 [email or web address] Spontaneous unlabored Yes 03/25/24 07:25 [email or web address] respirations Mental status nausea No 03/25/24 07:25 [email or web address] Vomiting No 03/25/24 07:25 EVENT [email or web address] Anesthesia Postop Eval I: Fluid Summary Crystalloid volume administer 300 03/25/24 07:25 [email or web address] (ml) Colloids volume administered ( ml) Blood Product volume administered (ml) Total IV fluid infused 300 03/25/24 07:25 EVENT [email or web address] Anesthesia Postop Eval I: Summary Notes Anesthesia Complication No 03/25/24 07:25 [email or web address] Anesthesia Complication Comment: Post-operative progress note Anesthesia: Postop Eval II Evaluation Mental status: Awake Pain Level: 0 nausea: No Vomiting: No
--- NOTE | 2024-03-25 07:26 | PCM.POSTANE2 ---
Anesthesia Postop Eval I Sum Postop Eval Completion status Anesthesia document: Postop Eval 1 completed: Yes Anesthesia Postop Eval I Summary Anesthesia Postop Eval I Summary: Anesthesia Postop Eval I: Assessment Summary Airway patent Yes 03/25/24 07:25 [employer] D[email or web address] Spontaneous unlabored Yes 03/25/24 07:25 [email or web address] respirations Mental status nausea No 03/25/24 07:25 [email or web address] Vomiting No 03/25/24 07:25 [email or web address] Anesthesia Postop Eval I: Fluid Summary Crystalloid volume administer 300 03/25/24 07:25 [email or web address] (ml) Colloids volume administered ( ml) Blood Product volume administered (ml) Total IV fluid infused 300 03/25/24 07:25 [email or web address] Anesthesia Postop Eval I: Summary Notes Anesthesia Complication No 03/25/24 07:25 [email or web address].[email or web address] Anesthesia Complication Comment: Post-operative progress note Anesthesia: Postop Eval II Evaluation Mental status: Awake Pain Level: 0 nausea: No Vomiting: No
== END 2024-03-25 08:20 | disposition home or self-care (01) ==
LOC: EN 05:19 → AC 05:20
PROVIDERS: Visit Provider Internal Medicine Gastroenterology
PROC: 0DJD8ZZ Inspection of Lower Intestinal Tract, Via Natural or Artificial Opening Endoscopic (ICD-10-PCS; CPT 45378; principal; 2024-03-25 06:25)
DX: K51.90 Ulcerative colitis, unspecified, without complications (principal); K21.00 Gastro-esophageal reflux disease with esophagitis, without bleeding; K26.9 Duodenal ulcer, unspecified as acute or chronic, without hemorrhage or perforation
CPT/HCPCS: 45380; 88305; J7120; J2405

== ENCOUNTER 2024-04-19 07:51 | Outpatient (CLI) | payer OTHER, SELFPAY ==
[2024-04-19 08:02] VITALS: BP 151/92; PULSE 83; RESP 16; TEMP 36.4; O2SAT 97; BMI 22.8
[2024-04-19] MEDS: 0.9% NaCl IVPB Med Flush (250 mL) 15 ML IV (08:48)
[2024-04-19] MEDS: Ustekinumab 390 MG in 0.9% Normal Saline (250mL Bag) 172 ML 250 MG IV (08:49)
[2024-04-19 10:24] VITALS: BP 161/97; PULSE 80; RESP 14; TEMP 36.4; O2SAT 99
== END 2024-04-19 23:59 | disposition home or self-care (01) ==
LOC: MEDOUTP 07:52
PROVIDERS: Referring Provider Internal Medicine Gastroenterology; Visit Provider Internal Medicine Gastroenterology
DX: K51.00 Ulcerative (chronic) pancolitis without complications (principal)
CPT/HCPCS: 96365; J7050; A4216; J3358

== ENCOUNTER → 2024-08-19 | Outpatient (CLI) | payer BC, SELFPAY ==
[2024-08-19 09:21] LABS: Erythrocyte Sedimentation Rate < 1 mm/hr (0-20)
[2024-08-19 09:24] LABS: Absolute Lymphocyte Count 1.26 X10^3/uL (0.83-4.51); Absolute Neutrophil Count 2.2 X10^3/uL (2.0-7.7); Basophil# 0.02 X10^3/uL; Basophil% 0.5 % (0-1); Eosinophil# 0.27 X10^3/uL; Eosinophils% 6.3 % (0-5); Hematocrit 44.7 % (40-54); Hemoglobin 15.7 g/dL (13.0-16.5); Lymphocyte # 1.26 X10^3/ul (0.83-4.51); Lymphocyte % 29.4 % (19-41); Mean Corp Hgb Conc 35.1 g/dL (32-36); Mean Corpuscular Hgb 32.1 pg (27.0-32.0); Mean Corpuscular Volume 91.4 fL (80-94); Mean Platelet Vol. 8.3 fl (6.2-12.0); Monocyte# 0.55 X10^3/uL; Monocyte% 12.9 % (0-10); NRBC Flagged by Analyzer 0 % (0-5); Neutrophil # 2.17 X10^3/uL (2.7-7.7); Neutrophil % 50.7 % (47-70); Platelet Count 398 K/mm3 (150-450); RBC Distribution Width CV 11.6 % (11.6-14.6); RBC Distribution Width SD 39.2 fl (35.1-43.9); Red Blood Count 4.89 M/mm3 (4.6-6.2); White Blood Count 4.3 K/mm3 (4.4-11.0)
== END | disposition home or self-care (01) ==
PROVIDERS: Referring Provider Internal Medicine Gastroenterology; Visit Provider Internal Medicine Gastroenterology
DX: K51.90 Ulcerative colitis, unspecified, without complications (principal)
CPT/HCPCS: 85025; 85652

== ENCOUNTER → 2024-10-04 | Outpatient (CLI) | payer BC, SELFPAY | END | disposition home or self-care (01) | LOC: LAB 07:17 | PROVIDERS: Referring Provider Internal Medicine Gastroenterology; Visit Provider Internal Medicine Gastroenterology | DX: K51.90 Ulcerative colitis, unspecified, without complications (principal) ==